=== PATIENT | female | born 1960 | race Caucasian/White ===

== ENCOUNTER → 2020-08-22 | Outpatient (CLI) | payer BC | END | disposition home or self-care (01) | LOC: RAH 08:44 → EDUNIT# 09:00 | PROVIDERS: ATTEND Nurse Practitioner Adult Health | DX: I08.1 Rheumatic disorders of both mitral and tricuspid valves (principal); E04.9 Nontoxic goiter, unspecified; I65.21 Occlusion and stenosis of right carotid artery; E04.2 Nontoxic multinodular goiter; G45.9 Transient cerebral ischemic attack, unspecified | CPT/HCPCS: 76536; 93306; 93356; 93880 ==

== ENCOUNTER → 2020-08-29 | Outpatient (CLI) | payer BC ==
[~2020-08-29] MED LIST: GADODIAMIDE 10 MMOL/20 ML VIAL IV ONE
== END | disposition home or self-care (01) ==
LOC: RAH 14:04 → EDUNIT# 09-05 08:00
PROVIDERS: ATTEND Nurse Practitioner Adult Health
DX: G45.9 Transient cerebral ischemic attack, unspecified (principal)
CPT/HCPCS: 70553; A9579

== ENCOUNTER → 2020-09-25 | Outpatient (CLI) | payer BC | END | disposition home or self-care (01) | LOC: SHCH 09:52 | PROVIDERS: ATTEND Internal Medicine Cardiovascular Disease | DX: R94.31 Abnormal electrocardiogram [ECG] [EKG] (principal); R00.2 Palpitations | CPT/HCPCS: 70544; 93306; 93356 ==

== ENCOUNTER → 2020-09-27 | Outpatient (CLI) | payer BC ==
[~2020-09-27] MED LIST changes: -GADODIAMIDE 10 MMOL/20 ML VIAL IV ONE; +REGADENOSON 0.4 MG/5 ML PF SYG IVP SCH
== END | disposition home or self-care (01) ==
LOC: SHCH 07:55 → EDUNIT# 08:10
PROVIDERS: ATTEND Internal Medicine Cardiovascular Disease
DX: R94.31 Abnormal electrocardiogram [ECG] [EKG] (principal); R00.2 Palpitations
CPT/HCPCS: 78452; 93017; 96374; A9500 ×2; J2785

== ENCOUNTER 2020-10-10 07:26 | Day surgery (SDC) | payer BC ==
[2020-10-08 09:51] LABS: BASOPHILS % (AUTO) 0.2 % (0.0-5.0); EOSINOPHILS % (AUTO) 2.9 % (0.0-8.0); HEMATOCRIT 41.9 % (36-48); LYMPHOCYTES % (AUTO) 34.7 % (21.0-51.0); MEAN CORPUSCULAR HEMOGLOBIN 28.8 pg (27.0-33.0); MEAN CORPUSCULAR HGB CONC 33.7 g/dL (32.0-36.0); MEAN CORPUSCULAR VOLUME 85.7 fL (79-99); MONOCYTES % (AUTO) 7.1 % (3.0-13.0); NEUTROPHILS % (AUTO) 54.9 % (40.0-77.0); PLATELET COUNT (AUTO) 270 K/uL (130-400); RED BLOOD CELL COUNT(AUTO) 4.89 MIL/uL (4.00-5.50); RED CELL DISTRIBUTION WIDTH 12.5 % (11.0-15.5); WHITE BLOOD COUNT (AUTO) 5.1 K/uL (4.8-10.8)
[2020-10-08 09:55] LABS: CREATININE 0.9 mg/dL (0.5-1.5); POTASSIUM 3.9 mmol/L (3.5-5.1)
[2020-10-08 09:56] LABS: APPEARANCE,URINE Clear (CLEAR); BILIRUBIN,URINE Negative (NEGATIVE); COLOR,URINE Dark Yellow (YELLOW); GLUCOSE, URINE (UA) Negative (NEGATIVE); KETONES,URINE Trace mg/dL (NEGATIVE); LEUKOCYTE ESTERASE ,URINE Trace (NEGATIVE); NITRATE,URINE Negative (NEGATIVE); OCCULT BLOOD,URINE Negative (NEGATIVE); PROTEIN,URINE Negative (NEGATIVE)
[2020-10-08 10:01] LABS: PROTHROMBIN TIME 10.7 SEC (9.6-11.6)
[2020-10-08 10:02] LABS: PARTIAL THROMBOPLASTIN TIME 27.1 SEC (26.3-35.5)
[2020-10-08 10:11] LABS: BACTERIA,URINE Few /HPF (None Seen); RBC,URINE 0-1 /HPF (0-1); WBC,URINE 0-1 /HPF (0-1)
--- NOTE | 2020-10-09 13:10 | NUR ---
Spoke to to Miguel Angel dean about urine trace of leukest, few bact, 2-5 squam epi, no new orders okay to proceed.
[~2020-10-10] VITALS: Ht 160 cm; Wt 83.2 kg
[2020-10-10] VITALS (8 sets, daily range): BP systolic 131–181; BP diastolic 69–79
[~2020-10-10 07:26] MED LIST changes: +ASPI-1443 PO; +CALCIUM,MAG,ZINC PO; +L.AC1CAP6 PO; +METO-408 PO; +POTA99TA21 PO; -REGADENOSON 0.4 MG/5 ML PF SYG IVP SCH; +RHODIOLA PO; +SODIUM CHLORIDE 0.9% 500ML 500 ML IV SCH; +VITAMIN D3 PO; +super B complex PO; +vitamin b12 SL; +vitamin c PO
--- NOTE | 2020-10-10 08:00 | NUR ---
PREOP PT ARRIVED AMBULATORY IN NO DISTRESS. PT ORIENTED TO ROOM AND CALL LIGHT. CONNECTED TO [employer]. WILL CONTINUE TO MONITOR
[2020-10-10] MEDS ORDERED: SODIUM CHLORIDE 0.9% 1000ML 1,000 ML IV ONE (08:37)
[2020-10-10] MEDS ORDERED: BIVALIRUDIN 250 MG/VIAL IV ONE (08:44)
[2020-10-10] MEDS ORDERED: NICARDIPINE HCL 25 MG/10 ML ML IV ONE ×2 (08:44→08:47)
[2020-10-10] MEDS ORDERED: SODIUM BICARB 50MEQ 50ML VIAL 50 ML ONE (08:44)
[2020-10-10] MEDS ORDERED: IOHEXOL-350 75 ML VIAL IV ONE (08:45)
[2020-10-10] MEDS ORDERED: IOHEXOL 350 MG/ML 100ML INFUS..BTL IV ONE (08:45)
[2020-10-10] MEDS ORDERED: MIDAZOLAM HCL 1 MG/ML 2ML VIAL ONE (08:45)
[2020-10-10] MEDS ORDERED: HEPARIN SODIUM 1000UNIT/ML 10ML VIAL ONE (08:45)
[2020-10-10] MEDS ORDERED: LIDOCAINE HCL 2% 20ML ONE (08:45)
[2020-10-10] MEDS ORDERED: FENTANYL CITRATE PF 50 MCG/1 ML 2ML VIAL ONE (08:45)
[2020-10-10] MEDS ORDERED: NITROGLYCERIN 2 MG/VIAL VIAL IV ONE (08:45)
--- NOTE | 2020-10-10 08:55 | NUR ---
BOAT BUILDER PT TAKEN TO BOAT BUILDER VIA BED IN NO DISTRESS
[2020-10-10] MEDS ORDERED: ENALAPRILAT DIHYDRATE 1.25 MG/ML 2ML VIAL IVP ONE (10:07)
--- NOTE | 2020-10-10 10:20 | NUR ---
POST CATH RECEIVED PT AND REPORT FROM CASPER BURROUGHS. PT IN SUPINE POSITION IN NO DISTRESS. RT GROIN CLEAN AND DRY. PT AND RELATIVE GIVEN POST CATH D/C INSTRUCTIONS. WILL CONTINUE TO MONITOR PT
--- NOTE | 2020-10-10 10:30 | NUR ---
MD DR PERDUE IN TO SEE PT AND TALK TO DAUGHTER. INFORMED OF HR. RECEIVED INSTRUCTIONS TO STOP METOPROLOL DUE TO HR. PT HAS F/U WITH DR COVARRUBIAS, SO DR PERDUE INFORMED HIM OF HR AND METOPROLOL D/C. OK TO D/C PT IF ASYMPTOMATIC.
--- NOTE | 2020-10-10 12:58 | NUR ---
REPORT PT C/O PAIN TO RT GROIN AND REQUESTING SOMETHING FOR PAIN. CALLED SANDY HINDS FOR DR PERDUE AND GOT NEW ORDERS. WILL CARRY OUT ORDERS
[2020-10-10] MEDS ORDERED: ACETAMINOPHEN EXTRA STRENGTH 500 MG TABLET ONE (12:59)
[2020-10-10] MEDS ORDERED: ACETAMINOPHEN EXTRA STRENGTH 500 MG TABLET PO SCH (13:00)
--- NOTE | 2020-10-10 13:35 | NUR ---
DISCHARGE PT AND DAUGHTER GIVEN D/C INSTRUCTIONS. NO S/S OF BLEEDING OR HEMATOMA TO RT GROIN. PT TAKEN OUT VIA W/C BY RENETTA ANAYA.
== END 2020-10-10 13:35 | disposition home or self-care (01) ==
LOC: DAH 07:26
PROVIDERS: ATTEND Internal Medicine Cardiovascular Disease
DX: I25.119 Atherosclerotic heart disease of native coronary artery with unspecified angina pectoris (principal); I47.1 Supraventricular tachycardia; Z90.710 Acquired absence of both cervix and uterus; Z82.49 Family history of ischemic heart disease and other diseases of the circulatory system; Z79.899 Other long term (current) drug therapy; Z79.82 Long term (current) use of aspirin
CPT/HCPCS: 36415; 71045; 80048; 81001; 85025; 85610; 85730; 93005; 93458; A4215; A4216; A4221; A4222; A4223 ×3; A4606; A4663; C1760; C1769; C1894 ×2; J1644; J2250; J3010; J3490 ×5; J7030; Q9965 ×2; Q9967; 99156; 99157; J0583

== ENCOUNTER 2021-02-13 07:30 | Day surgery (SDC) | payer BC ==
[2021-02-11 13:41] LABS: BASOPHILS % (AUTO) 0.2 % (0.0-5.0); EOSINOPHILS % (AUTO) 1.5 % (0.0-8.0); LYMPHOCYTES % (AUTO) 41.9 % (21.0-51.0); MEAN CORPUSCULAR HEMOGLOBIN 29.5 pg (27.0-33.0); MEAN CORPUSCULAR HGB CONC 33.8 g/dL (32.0-36.0); MEAN CORPUSCULAR VOLUME 87.1 fL (79-99); NEUTROPHILS % (AUTO) 49.2 % (40.0-77.0); PLATELET COUNT (AUTO) 237 K/uL (130-400); RED BLOOD CELL COUNT(AUTO) 4.48 MIL/uL (4.00-5.50); RED CELL DISTRIBUTION WIDTH 12.8 % (11.0-15.5); WHITE BLOOD COUNT (AUTO) 4.5 K/uL (4.8-10.8)
[2021-02-11 13:53] LABS: CREATININE 0.8 mg/dL (0.5-1.5); POTASSIUM 4.1 mmol/L (3.5-5.1)
[2021-02-11 13:54] LABS: PROTHROMBIN TIME 10.9 SEC (9.6-11.6)
[2021-02-12 11:33] VITALS: BP 200/109
[~2021-02-13] VITALS: Ht 160 cm; Wt 83.9 kg
[2021-02-13] VITALS (11 sets, daily range): BP systolic 126–200; BP diastolic 67–121
[~2021-02-13 07:30] MED LIST changes: +LOSA50TA64 PO; +MAGNESIUM ASPARTATE PO; +MELATONIN GUMMY PO; -METO-408 PO; -POTA99TA21 PO; +VERE240SR PO; +[UNRECOGNIZED DRUG - OTHER] PO
[2021-02-13] MEDS ORDERED: SODIUM CHLORIDE 0.9% 1000ML 1,000 ML IV ONE (08:02)
[2021-02-13] MEDS ORDERED: prebiotic PO (08:48)
[2021-02-13] MEDS ORDERED: TAURINE PO (08:48)
[2021-02-13] MEDS ORDERED: HEPARIN SODIUM 1000UNIT/ML 10ML VIAL ONE (10:18)
[2021-02-13] MEDS ORDERED: LIDOCAINE HCL 2% 20ML ONE (10:18)
[2021-02-13] MEDS ORDERED: MEPERIDINE-PF 25 MG/ML SYG ONE (10:21)
[2021-02-13] MEDS ORDERED: MIDAZOLAM HCL 1 MG/ML 2ML VIAL ONE (10:21)
[2021-02-13] MEDS ORDERED: ISOPROTERENOL HCL 0.2 MG/ML AMP/VIAL/BAG ONE (10:26)
[2021-02-13] MEDS ORDERED: ADENOSINE 90MG/30ML VIAL IV ONE (11:34)
[2021-02-13] MEDS ORDERED: PIND5 PO (12:31)
== END 2021-02-13 16:30 | disposition home or self-care (01) ==
LOC: DAH 07:30
PROVIDERS: ATTEND Internal Medicine Cardiovascular Disease
DX: I47.1 Supraventricular tachycardia (principal); I10 Essential (primary) hypertension; I25.10 Atherosclerotic heart disease of native coronary artery without angina pectoris; Z79.01 Long term (current) use of anticoagulants; Z79.82 Long term (current) use of aspirin; Z86.73 Personal history of transient ischemic attack (TIA), and cerebral infarction without residual deficits; Z90.710 Acquired absence of both cervix and uterus; Z82.49 Family history of ischemic heart disease and other diseases of the circulatory system; Z79.899 Other long term (current) drug therapy
CPT/HCPCS: 36415; 80048; 85025; 85610; 85730; 93620; 93621; 93623; A4215; A4216; A4221; A4222; A4223 ×3; A4606; A4649 ×2; A4663; C1730 ×4; C1894 ×5; J1644; J2175; J2250; J3490 ×2; J7030; 99156; 99157; J0153

== ENCOUNTER → 2021-03-03 | Outpatient (CLI) | payer BC ==
[~2021-03-03] MED LIST changes: +PIND5 PO; -SODIUM CHLORIDE 0.9% 500ML 500 ML IV SCH; +TAURINE PO; -VERE240SR PO; +prebiotic PO
[2021-03-03 13:36] LABS: THYROID STIMULATING HORMONE 2.53 uIU/mL (0.36-3.74)
== END | disposition home or self-care (01) ==
LOC: RAH 11:45
PROVIDERS: ATTEND Internal Medicine Endocrinology, Diabetes & Metabolism
DX: E04.2 Nontoxic multinodular goiter (principal)
CPT/HCPCS: 36415; 76536; 84439; 84443

== ENCOUNTER 2021-08-19 08:18 | Day surgery (SDC) | payer BC ==
[2021-08-15 14:26] LABS: BASOPHILS % (AUTO) 0.4 % (0.0-5.0); EOSINOPHILS % (AUTO) 1.9 % (0.0-8.0); HEMATOCRIT 40.6 % (36-48); LYMPHOCYTES % (AUTO) 38.8 % (21.0-51.0); MEAN CORPUSCULAR HEMOGLOBIN 28.9 pg (27.0-33.0); MEAN CORPUSCULAR HGB CONC 33.5 g/dL (32.0-36.0); MEAN CORPUSCULAR VOLUME 86.4 fL (79-99); NEUTROPHILS % (AUTO) 51.7 % (40.0-77.0); PLATELET COUNT (AUTO) 267 K/uL (130-400); RED CELL DISTRIBUTION WIDTH 12.8 % (11.0-15.5); WHITE BLOOD COUNT (AUTO) 5.7 K/uL (4.8-10.8)
[2021-08-15 14:43] LABS: CREATININE 0.8 mg/dL (0.5-1.5); POTASSIUM 3.7 mmol/L (3.5-5.1)
[2021-08-15 14:45] LABS: INR 0.98 (0.85-1.15); PROTHROMBIN TIME 10.7 SEC (9.6-11.6)
[2021-08-15 14:46] LABS: PARTIAL THROMBOPLASTIN TIME 26.6 SEC (26.3-35.5)
[2021-08-18 09:06] VITALS: BP 193/104
[~2021-08-19] VITALS: Ht 160 cm; Wt 90.3 kg
[~2021-08-19 08:18] MED LIST changes: +0.9%NACL 1000ML 1,000 ML IV SCH; -L.AC1CAP6 PO; +MAG PO; -MAGNESIUM ASPARTATE PO; -PIND5 PO; +POTASSIUM PO; +PROP60TA20 PO; +SELE200C PO; -TAURINE PO; +[UNRECOGNIZED DRUG - OTHER] PO; -[UNRECOGNIZED DRUG - OTHER] PO; +ashwagandha PO; +biotin PO; -prebiotic PO; +prebiotic/probiotic PO
[2021-08-19 08:21] VITALS: BP 152/96
[2021-08-19] MEDS ORDERED: MIDAZOLAM HCL 1 MG/ML 2ML VIAL ONE (12:36)
[2021-08-19] MEDS ORDERED: HEPARIN 10,000 UNIT/10ML (1,000 UNIT/ML) VIAL ONE (12:36)
[2021-08-19] MEDS ORDERED: MEPERIDINE-PF 25 MG/ML SYG ONE ×2 (12:37→14:00)
[2021-08-19] MEDS ORDERED: LIDOCAINE HCL 400MG/20ML VIAL ONE ×2 (12:37→13:41)
[2021-08-19] MEDS ORDERED: ISOPROTERENOL HCL 0.2 MG/ML AMP/VIAL/BAG ONE (13:20)
[2021-08-19] MEDS ORDERED: ACETAMINOPHEN WITH CODEINE 1 TAB TAB PO PRN ×2 (17:00)
[2021-08-19 17:10] VITALS: BP 156/98
[2021-08-19 17:25] VITALS: BP 157/71
[2021-08-19 17:40] VITALS: BP 156/88
[2021-08-19 17:55] VITALS: BP 161/98
[2021-08-19 18:10] VITALS: BP 155/94
== END 2021-08-19 21:00 | disposition home or self-care (01) ==
LOC: DAH 08:18
PROVIDERS: ATTEND Internal Medicine Cardiovascular Disease
DX: I47.1 Supraventricular tachycardia (principal); I25.2 Old myocardial infarction; I49.1 Atrial premature depolarization; I25.10 Atherosclerotic heart disease of native coronary artery without angina pectoris; Z98.890 Other specified postprocedural states; Z79.01 Long term (current) use of anticoagulants; Z79.82 Long term (current) use of aspirin; Z79.899 Other long term (current) drug therapy; Z86.73 Personal history of transient ischemic attack (TIA), and cerebral infarction without residual deficits; Z91.040 Latex allergy status; Z88.8 Allergy status to other drugs, medicaments and biological substances
CPT/HCPCS: 36415; 80048; 85025; 85610; 85730; 93005 ×2; 93620; 93621; 93623; A4215; A4216; A4221; A4222; A4223 ×3; A4606; A4649 ×2; A4663; C1730 ×3; C1894 ×4; J1644; J2175 ×2; J2250; J3490 ×3; J7030; 99156; 99157

== ENCOUNTER → 2022-03-09 | Outpatient (CLI) | payer BC ==
[~2022-03-09] MED LIST changes: -0.9%NACL 1000ML 1,000 ML IV SCH; -PROP60TA20 PO
== END | disposition home or self-care (01) ==
LOC: RAH 10:46
PROVIDERS: ATTEND Internal Medicine Endocrinology, Diabetes & Metabolism
DX: E04.2 Nontoxic multinodular goiter (principal); E07.9 Disorder of thyroid, unspecified
CPT/HCPCS: 76536

== ENCOUNTER → 2022-11-06 | Outpatient (CLI) | payer BC | END | disposition home or self-care (01) | LOC: RAH 11:00 | PROVIDERS: ATTEND Nurse Practitioner Adult Health | DX: Z12.31 Encounter for screening mammogram for malignant neoplasm of breast (principal) | CPT/HCPCS: 77067 ==

== ENCOUNTER → 2024-03-01 | Outpatient (CLI) | payer OTHER ==
[~2024-03-01] MED LIST changes: +ACET-66 PO; +MECL-262 PO; +ONDA4TAB10 PO
== END | disposition home or self-care (01) ==
LOC: OIH 14:06
PROVIDERS: ATTEND Nurse Practitioner Adult Health
DX: Z13.6 Encounter for screening for cardiovascular disorders (principal)
CPT/HCPCS: 75571

== ENCOUNTER → 2025-06-11 | Outpatient (CLI) | payer BC ==
[~2025-06-11] MED LIST changes: +ONDA-243 PO; -ONDA4TAB10 PO
--- NOTE | 2025-06-12 06:46 | HMCIMG ---
EXAMINATION: ULTRASOUND OF THE THYROID. CLINICAL HISTORY: Non-toxic multinodular goiter. COMPARISON: Ultrasound of the thyroid dated 03/16/2023. TECHNIQUE: Transverse and longitudinal images were obtained through both lobes and the isthmus of the thyroid. FINDINGS: The thyroid gland is normal in caliber with homogenous tissue echotexture. The right thyroid lobe measures 3.9 x 1.5 x 1.2 cm and the left thyroid lobe measures 3.9 x 1.4 x 1.2 cm in the craniocaudal, AP, and transverse dimensions respectively. The isthmus measures 0.50 cm in AP dimension. Right lobe: There is a calcified nodule that measures 0.5 x 0.4 x 0.7 cm at the upper pole (TR2). There is a hypoechoic solid nodule that measures 0.4 x 0.5 x 0.6 cm at the lower pole (TR4). Left lobe: There is a hypoechoic solid nodule that measures 0.8 x 0.3 x 0.6 cm at the upper pole (TR4). There is an isoechoic solid nodule that measures 0.5 x 0.5 cm at the mid pole (TR3). Isthmus: There is a hypoechoic solid nodule that measures 0.5 x 0.2 x 0.5 cm (TR4). There is a hypoechoic solid nodule that measures 0.5 x 0.3 x 0.5 cm (TR4). There is an isoechoic solid nodule that measures 1.3 x 0.9 x 1.0 cm (TR3). No significantly enlarged lymph nodes. IMPRESSION: Nodules in both lobes and isthmus of the thyroid. TI-RADS follow up recommendations: TR1: no FNA required TR2: no FNA required TR3: more than or equal to 1.5 cm follow up, more than or equal to 2.5 cm FNA follow up: 1, 3 and 5 years TR4: more than or equal to 1.0 cm follow up, more than or equal to 1.5 cm FNA follow up: 1, 2, 3 and 5 years TR5: more than or equal to 0.5 cm follow up, more than or equal to 1.0 cm FNA annual follow up for up to 5 years /[place]
== END | disposition home or self-care (01) ==
LOC: RAH 12:57
PROVIDERS: ATTEND Internal Medicine Endocrinology, Diabetes & Metabolism
DX: E04.2 Nontoxic multinodular goiter (principal); E06.3 Autoimmune thyroiditis
CPT/HCPCS: 76536